=== PATIENT | male | born 1940 | race Caucasian/White ===

== ENCOUNTER 2023-07-09 10:38 | Inpatient (IN) | payer MEDICARE, SELFPAY ==
--- NOTE | ~2023-07-09 | XR_ITS ---
EXAMINATION: XR RIBS, RIGHT CLINICAL INFORMATION: Fall, right rib pain COMPARISON: None available. TECHNIQUE: 3 views of the right ribs were obtained. FINDINGS: The lungs are well-expanded without any acute consolidation or mass or nodule.. The cardiomediastinal silhouette and pulmonary vasculature are normal. There are fractures involving right lateral eighth and ninth ribs. There is no pneumothorax. There is a small right pleural effusion. XR/XR ribs RT min 3V w CXR1V IMPRESSION: Fractures involving right lateral eighth and ninth ribs with small right basilar pleural effusion and no pneumothorax.
--- NOTE | ~2023-07-09 | CT_ITS ---
EXAMINATION: CT ABDOMEN AND PELVIS WITHOUT CONTRAST CLINICAL INFORMATION: Abdominal distention. COMPARISON: None available. TECHNIQUE: Multidetector volumetric imaging was performed from the superior aspect of the liver through the pubic symphysis. Sagittal and coronal reformatted images were obtained on the technologist's workstation. This CT examination was performed using dose optimization techniques as appropriate, variously including the following: *Automated exposure control *Adjustment of mA and/or kV according to patient size (this includes techniques or standardized protocols for targeted exams where dose is matched to indication/reason for exam; i.e. extremities or head) *Use of iterative reconstruction technique DLP: 767 mGy-cm FINDINGS: LUNG BASES: There is a small right pleural effusion with associated atelectatic change at the right lung base. There is a right pneumothorax. LIVER, GALLBLADDER, AND BILIARY TREE: The liver is normal in size, shape, and attenuation. No focal hepatic lesion or biliary ductal dilatation is present. The gallbladder is unremarkable with no evidence of radiopaque gallstones, gallbladder wall thickening, or obvious pericholecystic inflammatory changes. PANCREAS: Unremarkable. SPLEEN: Unremarkable. ADRENAL GLANDS: Unremarkable. KIDNEYS AND URETERS: The kidneys are normal in size, shape, and attenuation. No hydronephrosis, hydroureter, or calculi seen. No perinephric stranding. BLADDER: Unremarkable. GASTROINTESTINAL TRACT: There are a few diverticula of the descending colon without diverticulitis. The appendix is not confidently seen as a separate structure. ABDOMINAL WALL: No significant hernia is appreciated. LYMPH NODES: Normal. VASCULAR: There is atherosclerotic plaque of the abdominal aorta and proximal branches. PELVIC VISCERA: Unremarkable. OSSEOUS STRUCTURES: There is diffuse thoracolumbar disc degenerative change. There is bilateral hip degenerative change. There are fractures of the anterolateral right 8th through 11th ribs. CT/CT abdomen pelvis wo IV con IMPRESSION: Right pleural effusion with atelectasis. Partially imaged anterior right pneumothorax. Consider plain film evaluation. 8 through 11th right rib fractures. Diverticula of the descending colon without diverticulitis. No acute intra-abdominal process. Fleischner guidelines were followed.
--- NOTE | ~2023-07-09 | CT_ITS ---
Examination: CT chest, abdomen pelvis without IV contrast. CLINICAL INDICATION: Trauma evaluate for a fracture or effusion. Correlation: Chest x-ray 07/09/2023. TECHNIQUE: 5 mm thin axial and reformatted 3 mm thin sagittal and coronal images of chest, abdomen pelvis were obtained without contrast. DLP 953. This CT examination was performed using dose optimization technique as appropriate, variously including the following: Automated exposure control Adjustment of MA and/or KV according to patient size(this includes techniques or standardized protocols for targeted exams where dose is matched to indication/reason for exam; extremities or head. Use of iterative reconstruction techniques. FINDINGS: Chest: LUNGS: The lungs are well-expanded and clear of acute process. There is no consolidation, contusion or mass. Mediastinum: Central trachea and the bronchi widely patent. The thyroid lobes are symmetric and normal. The thoracic aorta is of normal caliber. Small shotty lymph nodes are seen in the mediastinum. No mediastinal hematoma seen. There is small calcification along the right upper paramediastinum. No pericardial effusion seen. Trace coronary artery calcifications. Pleura: There is a small right pleural effusion measuring 2 Hounsfield units. No evidence of pneumothorax. The left pleural space is unremarkable. Axilla: No abnormal size axillary lymph nodes seen. The chest wall is unremarkable. Osseous structures: There is mild ventral spondylosis throughout dorsal spine. No aggressive lytic or sclerotic process seen. There are right lateral fractures involving right fifth through 11th ribs. There is a right posterior nondisplaced third, lateral fourth, fifth ribs. No obvious additional fracture seen. . ABDOMEN AND PELVIS: Liver, ducts and gallbladder: The liver is homogeneous in density, normal contour and size. No focal lesion, laceration or hematoma seen. No intrahepatic ductal dilatation. The gallbladder is unremarkable. Spleen: Unremarkable. Pancreas: Unremarkable. Adrenal glands: Unremarkable. Kidneys and ureters: Both kidneys are symmetrical in size, shape and position. No perinephric hematoma or renal contusion. No radiopaque renal calculi or hydronephrosis. Abdominal wall: Unremarkable. GI tract: There is colonic diverticulosis without mural thickening or poorly chronic fat stranding. There is not cystic mild mural thickening of the rectum. Appendix is not visualized with certainty. The small bowel loops are normal caliber. No free air or free fluid seen. Pelvis: The bladder is normally distended without any bladder wall thickening or radiopaque calculi. Osseous structures: No acute fracture or lytic process seen. There is degenerative disc changes with vacuum disc phenomena L2-L3 and L4-L5 disc levels. There is moderate ventral spondylosis lower dorsal and lumbar spine. No aggressive lytic or sclerotic process. CT/CT abdomen pelvis wo IV con IMPRESSION: Multiple right rib fractures from fifth through 11th. There is a small right pleural effusion. No lung contusion or pneumothorax seen. There is no acute intra-abdominal abnormality. Especially no solid organ laceration or hematoma. Colonic diverticulosis with nonspecific mild mural thickening of this distal sigmoid colon and rectum.
--- NOTE | ~2023-07-09 | XR_ITS ---
EXAMINATION: XR CHEST CLINICAL INFORMATION: Shortness of breath. Concern for pneumothorax. COMPARISON: 07/09/2023. TECHNIQUE: Frontal view of the chest was obtained. FINDINGS: The lung volumes are low. The cardiomediastinal silhouette is stable. There is a small right pneumothorax extending to the right lung apex. There is blunting of the right costophrenic angle. Multiple lower right rib fractures are noted. The soft tissues are unremarkable. XR/XR chest 1V IMPRESSION: Low lung volumes limits evaluation. Small right pneumothorax. Multiple lower right ribs fractures. Small right pleural effusion.
--- NOTE | ~2023-07-09 | XR_ITS ---
EXAMINATION: XR CHEST CLINICAL INFORMATION: Follow-up right pneumothorax COMPARISON: Chest 07/10/2023 TECHNIQUE: AP upright portable view of the chest was obtained. 0700 FINDINGS: There is no significant change in the small right apical pneumothorax. The cardiomediastinal silhouette is stable. Slight blunting of the right costophrenic angle, as before. Multiple lower right rib fractures. The soft tissues are unremarkable. XR/XR chest 1V IMPRESSION: No significant change in small right apical pneumothorax. Multiple lower right rib fractures Small right pleural effusion.
--- NOTE | 2023-07-09 10:57 | ED.FALL ---
HPI - Fall General Chief Complaint: Fall Stated Complaint: body pain due to fall Time Seen by Provider: 07/09/23 12:00 Source: patient Mode of arrival: ambulatory Limitations: no limitations History of Present Illness HPI Narrative: 83 yo male with history of HTN, glaucoma here with complaints of fall which occurred on Monday after trip and fall hitting back and right ribs. No hitting of the head or LOC. No AC therapy Taking ibuprofen/tylenol for pain. No abdominal pain, neck pain, headache, vision changes, vomiting. Related Data Home Medications Medication Instructions Recorded Confirmed atenolol 50 mg tablet 100 mg PO DAILY 07/09/23 07/09/23 timolol 0.5 % eye drops 2 drp ophthalmic (eye) DAILY 07/09/23 07/09/23 Allergies Allergy/AdvReac Type Severity Reaction Status Date / Time Sulfa (Sulfonamide Allergy Unknown Verified 07/09/23 10:58 Antibiotics) Review of Systems Review of Systems: Yes all other systems are reviewed and are negative Constitutional: Constitutional: Reports no additional constitutional complaints, Denies body ache(s), Denies chills, Denies fever(s), Denies headache(s) and Denies weakness Eyes: Eyes: Reports no additional eye complaints and Denies change in vision ENT: Reports system reviewed and no additional complaints, except as documented, Denies dizziness, Denies headache(s), Denies nasal congestion, Denies nasal discharge and Denies neck pain Cardiovascular: Cardiovascular: Reports no additional cardiovascular complaints, Reports chest pain, Denies leg edema and Denies dyspnea Respiratory: Respiratory: Reports no additional respiratory complaints, Denies cough and Denies dyspnea Gastrointestinal: Gastrointestinal: Reports no additional gastrointestinal complaints, Denies abdominal pain, Denies diarrhea, Denies nausea and Denies vomiting Genitourinary: Genitourinary: Denies urinary incontinence Musculoskeletal: Musculoskeletal: Reports no additional musculoskeletal complaints, Reports back pain, Denies arthralgias, Denies joint swelling, Denies neck pain, Denies numbness and Denies tingling Integumentary/Breasts: Skin/Breast: Reports system reviewed and no additional complaints, except as docu and Denies rash Neurologic: Reports system reviewed and no additional complaints, except as documented, Denies Abnormal speech present, Denies dizziness, Denies headache(s), Denies numbness, Denies tingling and Denies weakness PMFSH Past Medical History Attestation statement: The following information was validated with the patient. Source: old records reviewed and nursing notes reviewed Social History Social History Smoked in Last 30 Days: No Use of substances other than those prescribed or required for medical reasons: No Advance Directives: Yes Advance Directives Information Provided: No Advance Directives on File: No Physical Exam Vital Signs: Vital Signs: Last Vital Signs Temp 97.9 F 07/09/23 10:58 Pulse 68 07/09/23 10:58 Resp 16 07/09/23 14:49 BP 177/87 H 07/09/23 10:58 Pulse Ox 98 07/09/23 10:58 O2 Del Method Room Air 07/09/23 10:58 BMI result Body Mass Index 31.0 Const: General: cooperative, healthy appearing, comfortable and no acute distress Orientation/consciousness: patient oriented x3 Limitations: no limitations HEENT: Other: No hemo tympanum Head: Yes normal to inspection, No Gonzales's sign and No raccoon eyes Ears: hearing grossly normal bilaterally and TM's normal bilaterally General nose exam: Normal external nose present Face and sinus: Yes normal facial exam Mouth: Normal oral and palatal mucosa present Throat: Yes posterior oropharynx normal Eyes: General: appearance normal, both eyes and all related structures Pupils: Equal, round and reactive pupils present Neck: Other: No cervical midline tenderness, step-offs deformities Neck: Yes normal visual inspection, Yes full ROM, Yes no lymphadenopathy and Yes no meningeal signs Chest: Other: mild tenderness the right lateral wrist with no crepitus, ecchymosis or deformity. Chest palpation & inspection: normal inspection of the chest Resp: Effort & Inspection: normal respiratory effort Auscultation: clear to auscultation bilaterally Cardio: Rate: regular rate Rhythm: regular rhythm Peripheral pulses: Peripheral pulses 2+ throughout GI: Inspection: Yes normal to inspection and No distended Palpation (GI): Soft to palpation and nontender Auscultation: normal bowel sounds : General: Yes no CVA tenderness Back/Spine/Pelvis: Other: no tenderness over the spine, no ecchymosis or deformity noted. Back: no CVA tenderness Thoracic/Lumbar Spine: thoracic and lumbar spine normal to inspection Skin: General skin exam: no rashes or lesions noted Neuro: General: patient oriented x3, moves all extremities, no meningeal signs, no focal motor deficits and normal sensation to monofilament Cranial nerves: Yes CN's II-XII intact bilaterally, Yes Equal, round and reactive pupils present, Yes Bilaterally intact EOM present, Yes Nystagmus not present, Yes Normal facial strength present and Yes Midline tongue present Cognition (Neuro): normal cognition Speech: No Abnormal speech present Gait exam (Neuro): Normal gait present Motor exam (neuro): 5/5 motor strength present throughout Sensory Exam: Normal double simultaneous stimulation for sensation Extrem: General: Yes normal to inspection Course Course Course Narrative: This is a rapid medical exam. deferred additional HPI, ROS, PE to primary provider. 83 yo male with history of HTN, glaucoma here with complaints of fall which occurred on Monday after trip and fall hitting back and right ribs. No focal back pain on exam. +right rib tendernss on palpation. Will check x-rays. No AC therapy Taking ibuprofen/tylenol for pain VSS Reevaluation(s) Reevaluation #1: 1415- x-ray shows to rib fractures with a small right pleural effusion. Patient will have a CT chest and CT abdomen and pelvis to rule out pulmonary contusion, pneumothorax, pneumonia, upper abdominal injury. Will obtain baseline labs. Patient medicated Medications Administered Discontinued Medications Generic Name Dose Route Start Last Admin Trade Name Freq PRN Reason Stop Dose Admin Acetaminophen 975 mg 07/09/23 14:18 07/09/23 14:34 Acetaminophen 325 Mg Tablet PO 07/09/23 14:19 975 mg ONCE ONE Administration Ketorolac Tromethamine 30 mg 07/09/23 14:18 07/09/23 14:35 Ketorolac Tromethamine 30 Mg/Ml Vial IM 07/09/23 14:19 30 mg ONCE ONE Administration Lidocaine 1 patch 07/09/23 14:18 07/09/23 14:35 Lidocaine 4 % Patch Adh..Patch TRANSDERMA 07/09/23 14:19 1 patch ONCE ONE Administration Protocol Medical Decision Making Medical Decision Making [facility] Narrative: 83 yo male with history of HTN, glaucoma here with complaints of fall which occurred on Monday after trip and fall hitting back and right ribs. No hitting of the head or LOC. No AC therapy Taking ibuprofen/tylenol for pain. No abdominal pain, chest pain, neck pain, headache, vision changes, vomiting. On exam there is some mild tenderness over the right lateral ribs. No focal back pain on exam will obtain x-rays of the right ribs and chest Differential Diagnosis Differential Diagnoses: The differential diagnosis associated with the presentation includes fracture, contusion low concern for acute abdomen/thoracic injury Admission/Observation Consideration of admission/observation: Escalation of care including admission/observation considered Multiple non displaced rib fractures with remote trauma w/ no intrathoracic or intra-abdominal injury. Patient not requiring supplemental oxygen. No evidence of flail chest. I d/w this with my attending physician and we do not feel that patient requires transfer to trauma care center. However, patient will need better pain control and currently is >65 yrs ol, lives alone, drove here and has not way home if we provide narcotic pain control here. No relief with non-narcotic measures in the ED. I believe he would benefit from better pain control and a pulmonary toilet inpatient. Consult Healthcare Provider Management of the patient was discussed with: Hospitalist and Nurse Informatics Educator I spoke to the hospitalist (Dr Herron) who accepted admission but would like Thoracics input I spoke to thoracics (Dr. Mcmillan) who will consult on the patient if needed, recommend pain control, anesthesia consultation for epidural for pain control if necessary, no surgical intervention required Lab Data MDM Lab Attestation statement: I reviewed the patient's lab results. mild leukocytosis-otherwise unremarkable 07/09/23 14:56 07/09/23 14:56 Labs: Lab Results 07/09/23 Range/Units 14:56 WBC 12.0 H (4.8-10.8) X10*3/uL RBC 4.45 L (4.60-5.80) X10*6/uL Hgb 13.2 L (14.0-18.0) g/dl Hct 40.4 L (42.0-52.0) % MCV 90.8 (80.0-98.0) fL MCH 29.7 (27.0-33.0) pg MCHC 32.7 (31.0-36.0) g/dl RDW 13.0 (11.0-16.0) % Plt Count 265 (160-400) X10*3/uL MPV 8.9 L (9.4-12.4) fL Immature Gran % (Auto) 0.3 (0.0-0.4) % Neut % (Auto) 75.7 H (45-73) % Lymph % (Auto) 13.2 L (20-40) % [place] % (Auto) 7.6 (2-11) % Eos % (Auto) 2.7 (0-4) % Baso % (Auto) 0.5 (0-2) % Lymph # (Auto) 1.6 (1.2-4.9) X10*3/uL [place] # (Auto) 0.9 (0.1-1.2) X10*3/uL Eos # (Auto) 0.3 (0.0-0.4) X10*3/uL Baso # (Auto) 0.1 (0.0-0.2) X10*3/uL Abs Immat Gran (auto) 0.04 H (0.00-0.03) X10*3/uL Absolute Neuts (auto) 9.1 H (2.0-8.3) x10*3/uL Absolute Nucleated RBC 0.000 (0.0-0.012) X10*3/uL Nucleated RBC % (auto) 0.0 (0.0-0.2) /100WBC Sodium 137 (135-145) mmol/L Potassium 5.1 (3.3-5.1) mmol/L Chloride 105 (96-108) mmol/L Carbon Dioxide 22 (22-29) mmol/L Anion Gap 15 (12-20) BUN 12 (9-16) mg/dL Creatinine 0.88 (0.5-1.4) mg/dL Estim Creat Clear Calc 74.9 Estimated GFR > 60 Random Glucose 113 (60-115) mg/dL Calcium 9.8 (8.4-10.2) mg/dL Total Bilirubin 0.7 (0.0-1.0) mg/dL Direct Bilirubin 0.3 (0.0-0.5) mg/dL AST 20 (5-37) U/L ALT 34 (0-40) U/L Alkaline Phosphatase 74 (39-117) U/L Total Protein 8.1 H (6.5-8.0) g/dL Albumin 4.0 (3.5-5.0) g/dL Independent Interpretation I performed an independent interpretation of an: Plain X-Ray and CT Scan Interpretation: I independently reviewed the x-ray, CT chest/abdomen/pelvis and agree with the rad report Radiology Impression Discussion of test interpretation with radiology: I have reviewed the radiologist's reading. Radiologist Impression: [id number] [place] [address] XRay Report Signed Patient: Sylvester Finley MR#: [id number] : 1940 Acct:[id number] Age/Sex: 83 / M ADM Date: 07/09/23 Loc: .ED Attending Dr: Ordering Physician: Nancy Delgado NP Date of Service: 07/09/23 Procedure(s): XR ribs RT min 3V w CXR1V Accession Number(s): [id number] cc: ELDON HE MD; Nancy Delgado NP~ EXAMINATION: XR RIBS, RIGHT CLINICAL INFORMATION: Fall, right rib pain COMPARISON: None available. TECHNIQUE: 3 views of the right ribs were obtained. FINDINGS: The lungs are well-expanded without any acute consolidation or mass or nodule.. The cardiomediastinal silhouette and pulmonary vasculature are normal. There are fractures involving right lateral eighth and ninth ribs. There is no pneumothorax. There is a small right pleural effusion. XR/XR ribs RT min 3V w CXR1V IMPRESSION: Fractures involving right lateral eighth and ninth ribs with small right basilar pleural effusion and no pneumothorax. FINDINGS: Chest: LUNGS: The lungs are well-expanded and clear of acute process. There is no consolidation, contusion or mass. Mediastinum: Central trachea and the bronchi widely patent. The thyroid lobes are symmetric and normal. The thoracic aorta is of normal caliber. Small shotty lymph nodes are seen in the mediastinum. No mediastinal hematoma seen. There is small calcification along the right upper paramediastinum. No pericardial effusion seen. Trace coronary artery calcifications. Pleura: There is a small right pleural effusion measuring 2 Hounsfield units. No evidence of pneumothorax. The left pleural space is unremarkable. Axilla: No abnormal size axillary lymph nodes seen. The chest wall is unremarkable. Osseous structures: There is mild ventral spondylosis throughout dorsal spine. No aggressive lytic or sclerotic process seen. There are right lateral fractures involving right fifth through 11th ribs. There is a right posterior nondisplaced third, lateral fourth, fifth ribs. No obvious additional fracture seen. . ABDOMEN AND PELVIS: Liver, ducts and gallbladder: The liver is homogeneous in density, normal contour and size. No focal lesion, laceration or hematoma seen. No intrahepatic ductal dilatation. The gallbladder is unremarkable. Spleen: Unremarkable. Pancreas: Unremarkable. Adrenal glands: Unremarkable. Kidneys and ureters: Both kidneys are symmetrical in size, shape and position. No perinephric hematoma or renal contusion. No radiopaque renal calculi or hydronephrosis. Abdominal wall: Unremarkable. GI tract: There is colonic diverticulosis without mural thickening or poorly chronic fat stranding. There is not cystic mild mural thickening of the rectum. Appendix is not visualized with certainty. The small bowel loops are normal caliber. No free air or free fluid seen. Pelvis: The bladder is normally distended without any bladder wall thickening or radiopaque calculi. Osseous structures: No acute fracture or lytic process seen. There is degenerative disc changes with vacuum disc phenomena L2-L3 and L4-L5 disc levels. There is moderate ventral spondylosis lower dorsal and lumbar spine. No aggressive lytic or sclerotic process. CT/CT abdomen pelvis wo IV con IMPRESSION: Multiple right rib fractures from fifth through 11th. There is a small right pleural effusion. No lung contusion or pneumothorax seen. There is no acute intra-abdominal abnormality. Especially no solid organ laceration or hematoma. Colonic diverticulosis with nonspecific mild mural thickening of this distal sigmoid colon and rectum. Tests considered The following testing was considered but not selected: No head strike or LOC with normal neuro to suggest need for CT head Prescription Management I considered prescription management with: Pain Medication Chronic Conditions Patient?s care impacted by: Hypertension Critical Care Time Critical Care Time Critical Care Time: Yes Total Critical Care Time: 60 Attestation: reassessment of patient's pain, vital signs, discussion with thoracics and medicine for admission Discharge Plan Discharge Clinical Impression: Fracture of rib Patient Disposition: Admitted As Inpatient
[2023-07-09 10:58] VITALS: BP 177/87; PULSE 68; RESP 18; TEMP 36.6; O2SAT 98; BMI 31.0
[2023-07-09] MEDS: Acetaminophen 325 MG TABLET 975 MG PO (14:34)
[2023-07-09] MEDS: Ketorolac Tromethamine 30 MG/ML VIAL IM (14:35)
[2023-07-09] MEDS: Lidocaine 4 % Patch ADH..PATCH 1 PATCH TRANSDERMA (14:35)
[2023-07-09 14:49] VITALS: RESP 16
[2023-07-09 15:08] LABS: MANUAL DIFF FLAG NO
[2023-07-09 15:10] LABS: Basophils Absolute Auto 0.1 X10*3/uL (0.0-0.2); Basophils Percent Auto 0.5 % (0-2); Eosinophils Absolute Auto 0.3 X10*3/uL (0.0-0.4); Eosinophils Percent Auto 2.7 % (0-4); Hematocrit 40.4 % (42.0-52.0); Hemoglobin 13.2 g/dl (14.0-18.0); Imm Gran Abs Auto 0.04 X10*3/uL (0.00-0.03); Imm Gran Pct Auto 0.3 % (0.0-0.4); Lymphocytes Absolute Auto 1.6 X10*3/uL (1.2-4.9); Lymphocytes Percent Auto 13.2 % (20-40); Mean Corpuscular HGB Conc 32.7 g/dl (31.0-36.0); Mean Corpuscular Hemoglobin 29.7 pg (27.0-33.0); Mean Corpuscular Volume 90.8 fL (80.0-98.0); Mean Platelet Volume 8.9 fL (9.4-12.4); Monocytes Absolute Auto 0.9 X10*3/uL (0.1-1.2); Monocytes Percent Auto 7.6 % (2-11); Neutrophils Absolute Auto 9.1 x10*3/uL (2.0-8.3); Neutrophils Percent Auto 75.7 % (45-73); Platelet Count 265 X10*3/uL (160-400); Red Blood Count 4.45 X10*6/uL (4.60-5.80)
[2023-07-09 15:23] LABS: Alanine Aminotransferase 34 U/L (0-40); Alkaline Phosphatase 74 U/L (39-117); Anion Gap 15 (12-20); Aspartate Amino Transferase 20 U/L (5-37); Bilirubin Direct 0.3 mg/dL (0.0-0.5); Bilirubin Total 0.7 mg/dL (0.0-1.0); Blood Urea Nitrogen 12 mg/dL (9-16); Calcium 9.8 mg/dL (8.4-10.2); Carbon Dioxide 22 mmol/L (22-29); Chloride 105 mmol/L (96-108); Creatinine Clr Calc Pharmacy 74.9; Estimated Glomerular Filt Rate > 60; Glucose Random 113 mg/dL (60-115); Potassium 5.1 mmol/L (3.3-5.1); Sodium 137 mmol/L (135-145); Total Protein 8.1 g/dL (6.5-8.0)
--- NOTE | 2023-07-09 17:49 | PHA.MEDREC ---
Pharmacy Consult ? Medication Reconciliation Spoke with patient and confirmed medications. Pharmacy has completed the medication reconciliation.
--- NOTE | 2023-07-09 17:56 | PM.IMHP ---
History of Present Illness Date of Service: 07/09/23 <LAURA Musa - Last Filed: 07/09/23 18:05> Attending physician on admission: Kristen Herron <LAURA Musa - Last Filed: 07/09/23 18:05> Chief Complaint: rib pain <LAURA Musa - Last Filed: 07/09/23 18:05> 83-year-old male with history of glaucoma and hypertension presented to the ED earlier today for evaluation of right-sided rib pain. The patient reports he sustained a mechanical fall about 5 days ago. He was caring a crock pot down the stairs when he lost production floater and tried to catch this falling down on several stairs landing on the right side and back. He denies any head strike or loss of consciousness. Since then he has had uncontrolled pain worse with deep inspiration in the upper right back and right chest. In the ED, vital stable though patient hypertensive to 177/87. There is a slight leukocytosis of 12.0, stable normocytic anemia. Renal function electrolyte levels are normal. Hepatic function normal. X-ray of the right ribs shows fractures involving the right lateral 8th and 9th ribs with small right basilar pleural effusion. CT abdomen/pelvis negative for any acute intra-abdominal abnormality including fracture. CT chest shows multiple right rib fractures from 5th through 11th ribs with small right pleural effusion but no lung contusion or pneumothorax. In the ED, has received ketorolac, lidocaine patch, Tylenol without improvement. Patient has no ride home if administered narcotic medication and has no other ride home. Given intractable pain, patient will be observed overnight for pain management. Ordered for 4 mg IV morphine in the ED. <LAURA Musa - Last Filed: 07/09/23 18:05> Review of Systems Review of Systems: General: No fevers, malaise, unintentional weight loss HEENT: No blurred vision, diplopia. No sore throat, nasal congestion, rhinorrhea, sinus pain, ear pain Cardiovascular: No chest pain, palpitations, or leg edema Respiratory: No shortness of breath, wheezing, cough GI: No abdominal pain, nausea, vomiting, diarrhea, constipation, melena, hematochezia : No dysuria, hematuria, increased urinary frequency, decreased urinary output MSK: No myalgia, back pain. +right rib pain, +pleuritic cp Neuro: No headaches, weakness, paresthesias Skin: No rashes or lesions <LAURA Musa - Last Filed: 07/09/23 18:05> [facility] Medical History: Medical History Glaucoma HTN (hypertension) <LAURA Musa - Last Filed: 07/09/23 18:05> Social History: Social History Household Members: None Housing: House Do you presently have visiting nurse or other home services: No Patient Tobacco Use Status: Never used Tobacco Smoked in Last 30 Days: No Use of substances other than those prescribed or required for medical reasons: No Have you been hit, kicked, punched, or otherwise hurt by someone within the past year? If so, by whom?: No Do you feel safe in your current relationship?: No Current Relationship Is there a partner from a previous relationship who is making you feel unsafe now?: No Are you made to feel afraid or neglected: No Advance Directives: No Advance Directives Information Provided: No Advance Directives on File: No Do you have thoughts of harming others: None Do you have a plan to hurt others: No Plan Recently lost weight without trying: No How much weight loss: Not applicable Eating poorly because of decreased appetite: No Nutrition screen score: 0 Nutrition Risks: No Nutritional Risk Poor oral hygiene: No service: No <LAURA Musa - Last Filed: 07/09/23 18:05> Meds Allergies/Adverse reactions: Allergies Allergy/AdvReac Type Severity Reaction Status Date / Time Sulfa (Sulfonamide Allergy Unknown Verified 07/09/23 10:58 Antibiotics) <LAURA Musa - Last Filed: 07/09/23 18:05> Active Medications: Current Medications Acetaminophen (Acetaminophen 325 Mg Tablet) 650 mg PO Q6H PRN PRN Reason: Pain, Mild (Pain Scale 1-3) Atenolol (Atenolol 100 Mg Tablet) 100 mg PO DAILY [facility]; Protocol Docusate Sodium (Docusate Sodium 100 Mg Capsule) 100 mg PO DAILY PRN PRN Reason: Constipation Enoxaparin Sodium (Enoxaparin Sodium 40 Mg/0.4 Ml Syringe) 40 mg SUBCUT Q24H [facility] Lidocaine (Lidocaine 4 % Patch Adh..Patch) 2 patch TRANSDERMA DAILY [facility]; Protocol Ondansetron HCl (Ondansetron Hcl 4 Mg/2 Ml Vial) 4 mg IVPUSH Q8H PRN PRN Reason: Nausea and Vomiting Oxycodone HCl (Oxycodone Hcl Immed Release 5 Mg Tablet) 5 mg PO Q6H PRN PRN Reason: Pain, Severe (Pain Scale 7-10) Sodium Chloride (0.9 % Sodium Chloride Flush 3 Ml Syringe) 3 ml IVFLUSH QSHIFT [facility] Timolol Maleate (Timolol Maleate 0.5 % Oph Franca 5 Ml Drbtl) 2 drop EYE-BOTH DAILY [facility] <LAURA Musa - Last Filed: 07/09/23 18:05> Home medications: Home Medications Medication Instructions Recorded Confirmed Last Taken Type atenolol 50 mg tablet 100 mg PO DAILY 07/09/23 07/09/23 07/08/23 History timolol 0.5 % eye drops 2 drp ophthalmic (eye) DAILY 07/09/23 07/09/23 Unknown History <LAURA Musa - Last Filed: 07/09/23 18:05> Physical Exam Vital Signs and Narrative: Vital Signs: Last Vital Signs Temp 97.9 F 07/09/23 10:58 Pulse 68 07/09/23 10:58 Resp 16 07/09/23 14:49 BP 177/87 H 07/09/23 10:58 Pulse Ox 98 07/09/23 10:58 O2 Del Method Room Air 07/09/23 10:58 BMI result Body Mass Index 31.0 <LAURA Musa - Last Filed: 07/09/23 18:05> Constitutional - Awake and Alert, No apparent distress Eyes - PERRLA, EOMI Cardiovascular - S1S2, RRR, No edema Respiratory - Normal lung expansion, Normal respiratory effort, No respiratory distress, CTA bilaterally Extremities - no calf tenderness bilaterally, no swelling Musculoskeletal - Normal inspection, normal ROM. Diffuse ttp over posterior right ribs and right anterior chest Skin - Warm/Dry Neurological - Alert & oriented x3 Psychological - Appropriate affect <LAURA Musa - Last Filed: 07/09/23 18:05> Results Labs CBC and Chem 7: 07/10/23 05:05 07/10/23 05:05 <LAURA Musa - Last Filed: 07/09/23 18:05> Labs: Laboratory Results - last 24 hr 07/09/23 14:56 MCV 90.8 MCH 29.7 MCHC 32.7 RDW 13.0 Plt Count 265 MPV 8.9 L Immature Gran % (Auto) 0.3 Neut % (Auto) 75.7 H Lymph % (Auto) 13.2 L [place] % (Auto) 7.6 Eos % (Auto) 2.7 Baso % (Auto) 0.5 Lymph # (Auto) 1.6 [place] # (Auto) 0.9 Eos # (Auto) 0.3 Baso # (Auto) 0.1 Abs Immat Gran (auto) 0.04 H Absolute Neuts (auto) 9.1 H Absolute Nucleated RBC 0.000 Nucleated RBC % (auto) 0.0 Anion Gap 15 Estim Creat Clear Calc 74.9 Estimated GFR > 60 Random Glucose 113 Calcium 9.8 Total Bilirubin 0.7 Direct Bilirubin 0.3 AST 20 ALT 34 Alkaline Phosphatase 74 Total Protein 8.1 H Albumin 4.0 <LAURA Musa - Last Filed: 07/09/23 18:05> Imaging Radiologist's Impressions: Impressions Ribs X-Ray 07/09/23 12:38 IMPRESSION: Fractures involving right lateral eighth and ninth ribs with small right basilar pleural effusion and no pneumothorax. Abdomen/Pelvis CT 07/09/23 16:03 IMPRESSION: Multiple right rib fractures from fifth through 11th. There is a small right pleural effusion. No lung contusion or pneumothorax seen. There is no acute intra-abdominal abnormality. Especially no solid organ laceration or hematoma. Colonic diverticulosis with nonspecific mild mural thickening of this distal sigmoid colon and rectum. Chest CT 07/09/23 16:07 IMPRESSION: Multiple right rib fractures from fifth through 11th. There is a small right pleural effusion. No lung contusion or pneumothorax seen. There is no acute intra-abdominal abnormality. Especially no solid organ laceration or hematoma. Colonic diverticulosis with nonspecific mild mural thickening of this distal sigmoid colon and rectum. <LAURA Musa - Last Filed: 07/09/23 18:05> Assessment and Plan (1) Multiple fractures of ribs of right side: Status: Acute <LAURA Musa - Last Filed: 07/09/23 18:05> 83-year-old male with history of glaucoma and hypertension to be observed for intractable pain 2/2 right rib fractures #Multiple nondisplaced right rib fractures -s/p mechanical fall -pain management with oxycodone, Tylenol, lidocaine patch -incentive spirometry -anesthesiology consult for possible epidural or nerve block # hypertension -continue atenolol -monitor blood pressures # glaucoma -continue timolol DVT prophylaxis-Lovenox Do not intubate but attempt resuscitation <LAURA Musa - Last Filed: 07/09/23 18:05> 83-year-old male with history of glaucoma and hypertension to be observed for intractable pain 2/2 right rib fractures #Multiple nondisplaced right rib fractures -s/p mechanical fall -pain management with oxycodone, Tylenol, lidocaine patch -incentive spirometry -anesthesiology consult for possible epidural or nerve block # hypertension -continue atenolol -monitor blood pressures # glaucoma -continue timolol DVT prophylaxis-Lovenox Do not intubate but attempt resuscitation Addendum to history and physical by the advanced practice provider, LAURA Chamberlain I interviewed and examined the patient. I discussed their presentation and management with the NAKUL. I reviewed the history and physical and agree with the documentation, with the following additions and corrections: 83yo M presenting after mechanical fall 5d prior, no LOC or presycnope. Presenting with pleuritc R chest pain. Found to have multiple rib fx's with small pleural effusion. non-displaced, no contusion, no PTX. admitting for pain control + pulmonary toilet. per conversation with Thoracic, no role for surgical fixation. consider Anesthesia consult for epidural? nerve block? <Kristen Herron MD - Last Filed: 07/10/23 14:31> Time Spent With Patient Time: Total time managing care of this patient today ____ minutes. <LAURA Musa - Last Filed: 07/09/23 18:05> Quality Stroke Does the patient have a stroke diagnosis?: No <LAURA Musa - Last Filed: 07/09/23 18:05> VTE Prior VTE?: No <LAURA Musa - Last Filed: 07/09/23 18:05> VTE Risk Level:: Medical - moderate - high <LAURA Musa - Last Filed: 07/09/23 18:05> VTE Device Contraindication: Treatment Not Indicated <LAURA Musa - Last Filed: 07/09/23 18:05> VTE Drug Contraindication: N/A - Med Ordered <LAURA Musa - Last Filed: 07/09/23 18:05>
[2023-07-09] MEDS: ondansetron HCL 4 MG/2 ML VIAL IVPUSH (18:23)
[2023-07-09] MEDS: Morphine Sulfate 4 MG/ML CARTRIDGE IVPUSH (18:23)
[2023-07-09] MEDS: Enoxaparin Sodium 40 MG/0.4 ML SYRINGE SUBCUT (18:24)
[2023-07-09] MEDS: oxyCODONE HCl Immed Release 5 MG TABLET PO (21:19)
--- NOTE | 2023-07-09 23:23 | PC.NURSE ---
this rn assumed care of pt @ 2300. pt moved to overflow from [facility] [place]
[2023-07-09 23:44] VITALS: BP 135/74; PULSE 63; RESP 18; TEMP 36.4; O2SAT 93
[2023-07-10] VITALS (10 sets, daily range): BP systolic 106–172; BP diastolic 57–80; PULSE 65–74; RESP 15–20; TEMP 36–37.4; O2SAT 94–97; BMI 31.0
[2023-07-10] MEDS: Acetaminophen 325 MG TABLET 650 MG PO ×3 (00:43→14:41)
[2023-07-10] MEDS: 0.9 % Sodium Chloride Flush 3 ML SYRINGE IVFLUSH ×4 (02:00→23:08)
--- NOTE | 2023-07-10 02:06 | PC.NURSE ---
pt ambulatory 1 assist to restroom with glass lined tank repairer. pt calm and cooperative. repositioned back to bed. lights dimmed door closed per request of pt
[2023-07-10] MEDS: oxyCODONE HCl Immed Release 5 MG TABLET PO ×2 (03:24→09:02)
[2023-07-10 05:14] LABS: MANUAL DIFF FLAG NO
[2023-07-10 05:18] LABS: Basophils Absolute Auto 0.1 X10*3/uL (0.0-0.2); Basophils Percent Auto 0.4 % (0-2); Eosinophils Absolute Auto 0.2 X10*3/uL (0.0-0.4); Eosinophils Percent Auto 1.8 % (0-4); Hematocrit 37.2 % (42.0-52.0); Hemoglobin 12.4 g/dl (14.0-18.0); Imm Gran Abs Auto 0.04 X10*3/uL (0.00-0.03); Imm Gran Pct Auto 0.3 % (0.0-0.4); Lymphocytes Absolute Auto 1.1 X10*3/uL (1.2-4.9); Lymphocytes Percent Auto 8.4 % (20-40); Mean Corpuscular HGB Conc 33.3 g/dl (31.0-36.0); Mean Corpuscular Hemoglobin 30.2 pg (27.0-33.0); Mean Corpuscular Volume 90.7 fL (80.0-98.0); Mean Platelet Volume 8.8 fL (9.4-12.4); Monocytes Absolute Auto 1.1 X10*3/uL (0.1-1.2); Monocytes Percent Auto 8.6 % (2-11); Neutrophils Absolute Auto 10.7 x10*3/uL (2.0-8.3); Neutrophils Percent Auto 80.5 % (45-73); Platelet Count 213 X10*3/uL (160-400); White Blood Count 13.3 X10*3/uL (4.8-10.8)
[2023-07-10 05:29] LABS: Anion Gap 15 (12-20); Blood Urea Nitrogen 14 mg/dL (9-16); Calcium 9.1 mg/dL (8.4-10.2); Carbon Dioxide 22 mmol/L (22-29); Chloride 103 mmol/L (96-108); Creatinine Clr Calc Pharmacy 77.6; Estimated Glomerular Filt Rate > 60; Glucose Random 123 mg/dL (60-115); Potassium 4.2 mmol/L (3.3-5.1); Sodium 136 mmol/L (135-145)
[2023-07-10] MEDS: Lidocaine 4 % Patch ADH..PATCH 2 PATCH TRANSDERMA (08:46)
[2023-07-10] MEDS: atenoloL 100 MG TABLET PO (10:33)
[2023-07-10] MEDS: timoloL maleate 0.5 % Oph Sol 5 ML DRBTL 2 DROP EYE-BOTH (10:34)
[2023-07-10] MEDS: Morphine Sulfate 4 MG/ML CARTRIDGE IVPUSH ×3 (10:35→16:52)
--- NOTE | 2023-07-10 13:03 | MHC.CM.PN ---
María 07/10/23, Pt lives in own home, independent, no services or med equipment (he has med equipment in the home from his late ). He has no preference to VNA services if recommended. CM asked if he wanted a referral to [facility] for home health aid or meals on wheels, he declined saying it is not needed. His car is in parking lot here, but he may need to call his daughter who lives in [place] for a ride home if he is taking pain medication at DC. CM to follow and assist with DC plan.
[2023-07-10] MEDS: oxyCODONE HCl Immed Release 5 MG TABLET 10 MG PO (14:41)
--- NOTE | 2023-07-10 15:07 | P.PNIM_ITS ---
Subjective Subjective Date of Service: 07/10/23 Interval History: Pain control poor. P.o. meds not controlling pain. Sats stable but unable to cough for deep breathe at this time Review of Systems Admits to chest pain over rib fractures Denies shortness of breath Denies nausea vomiting diarrhea Denies fever chills Physical Exam 2 Vital Signs: Vital Signs: Last Vital Signs Temp 97.3 F 07/10/23 11:13 Pulse 68 07/10/23 11:13 Resp 19 07/10/23 13:44 BP 118/62 07/10/23 11:13 Pulse Ox 97 07/10/23 11:13 O2 Del Method Room Air 07/10/23 11:13 BMI result Body Mass Index 31.0 Const: Other: Uncomfortable appearing in bed; able speak in full sentences Chest: Other: Right lateral chest wall tenderness over fractures Resp: Other: Diminished but clear throughout. No rales rhonchi or wheezes Cardio: Other: No S4; positive S1-S2; no S3 murmurs rubs or gallops GI: Other: Soft nontender nondistended normoactive bowel sounds Neuro: Other: Cranial nerves 2-12 grossly intact as tested. Motor is 5/5 all extremities. Sensation is intact Extrem: Other: No edema bilaterally Objective Data Active Medications Acetaminophen (Acetaminophen 325 Mg Tablet) 650 mg PO Q6H PRN PRN Reason: Pain, Mild (Pain Scale 1-3) Last Admin: 07/10/23 14:41 Dose: 650 mg Documented By: GREGORIO Atenolol (Atenolol 100 Mg Tablet) 100 mg PO DAILY [facility]; Protocol Last Admin: 07/10/23 10:33 Dose: 100 mg Documented By: GREGORY Docusate Sodium (Docusate Sodium 100 Mg Capsule) 100 mg PO DAILY PRN PRN Reason: Constipation Enoxaparin Sodium (Enoxaparin Sodium 40 Mg/0.4 Ml Syringe) 40 mg SUBCUT Q24H [facility] Last Admin: 07/09/23 18:24 Dose: 40 mg Documented By: CINDY Lidocaine (Lidocaine 4 % Patch Adh..Patch) 2 patch TRANSDERMA DAILY [facility]; Protocol Last Admin: 07/10/23 08:46 Dose: 2 patch Documented By: GREGORY Morphine Sulfate (Morphine Sulfate 4 Mg/Ml Cartridge) 4 mg IVPUSH Q4H PRN; Protocol PRN Reason: Pain, Severe (Pain Scale 7-10) Last Admin: 07/10/23 10:35 Dose: 4 mg Documented By: GREGORY Ondansetron HCl (Ondansetron Hcl 4 Mg/2 Ml Vial) 4 mg IVPUSH Q8H PRN PRN Reason: Nausea and Vomiting Oxycodone HCl (Oxycodone Hcl Immed Release 5 Mg Tablet) 10 mg PO Q4H PRN PRN Reason: Pain, Moderate(Pain Scale 4-6) Last Admin: 07/10/23 14:41 Dose: 10 mg Documented By: GREGORIO Sodium Chloride (0.9 % Sodium Chloride Flush 3 Ml Syringe) 3 ml IVFLUSH QSHIFT [facility] Last Admin: 07/10/23 14:42 Dose: 3 ml Documented By: GREGORIO Timolol Maleate (Timolol Maleate 0.5 % Oph Franca 5 Ml Drbtl) 2 drop EYE-BOTH DAILY [facility] Last Admin: 07/10/23 10:34 Dose: 2 drop Documented By: GREGORY Labs 07/10/23 05:05 07/10/23 05:05 Labs: Laboratory Results - last 24 hr 07/09/23 07/10/23 14:56 05:05 MCV 90.8 90.7 MCH 29.7 30.2 MCHC 32.7 33.3 RDW 13.0 13.0 Plt Count 265 213 MPV 8.9 L 8.8 L Immature Gran % (Auto) 0.3 0.3 Neut % (Auto) 75.7 H 80.5 H Lymph % (Auto) 13.2 L 8.4 L [place] % (Auto) 7.6 8.6 Eos % (Auto) 2.7 1.8 Baso % (Auto) 0.5 0.4 Lymph # (Auto) 1.6 1.1 L [place] # (Auto) 0.9 1.1 Eos # (Auto) 0.3 0.2 Baso # (Auto) 0.1 0.1 Abs Immat Gran (auto) 0.04 H 0.04 H Absolute Neuts (auto) 9.1 H 10.7 H Absolute Nucleated RBC 0.000 0.000 Nucleated RBC % (auto) 0.0 0.0 Anion Gap 15 15 Estim Creat Clear Calc 74.9 77.6 Estimated GFR > 60 > 60 Random Glucose 113 123 H Calcium 9.8 9.1 D Total Bilirubin 0.7 Direct Bilirubin 0.3 AST 20 ALT 34 Alkaline Phosphatase 74 Total Protein 8.1 H Albumin 4.0 Assessment and Plan (1) Multiple fractures of ribs of right side: Status: Acute (2) HTN (hypertension): Status: Acute Plan 83yo M presenting after mechanical fall 5d prior, no LOC or presycnope. Presenting with pleuritc R chest pain. Found to have multiple rib fx's with small pleural effusion. non-displaced, no contusion, no PTX. admitting for pain control + pulmonary toilet. per conversation with Thoracic, no role for surgical fixation. 1.Multiple nondisplaced right rib fractures -will increase oxycodone to 10 q.4 hours; will add morphine 4 mg IV q.4 hours in hopes to get ahead of pain -incentive spirometry -anesthesiology consult for possible epidural or nerve block 2.Hypertension -acceptable control on current therapies -adjust as indicated Lovenox Do not intubate Will require ongoing hospitalization for IV analgesics pending assessment for nerve block Time Spent With Patient Time: Total time managing care of this patient today ____ minutes. Quality Stroke Does the patient have a stroke diagnosis?: No VTE Prior VTE?: No VTE Risk Level:: Medical - moderate - high VTE Device Contraindication: Treatment Not Indicated VTE Drug Contraindication: N/A - Med Ordered
[2023-07-10] MEDS: Enoxaparin Sodium 40 MG/0.4 ML SYRINGE SUBCUT (16:52)
--- NOTE | 2023-07-10 16:52 | PM.EVENT ---
Event Note Date of Service: 07/10/23 Event Note: Called to see patient for increased pain and change in quality and pain. On exam patient markedly distended and tympanitic. Given such will order CT scan abdomen and pelvis. Further plans based on forthcoming data Time Spent With Patient Time: Total time managing care of this patient today ____ minutes.
--- NOTE | 2023-07-10 21:55 | PM.EVENT ---
Event Note Date of Service: 07/10/23 Event Note: Patient got a abdominal CT scan earlier in the day for abdominal pain which showed a small right sided pneumothorax, confirmed by plain X-ray. He is on room air currently. Discussed with Dr Mcmillan, conservative management for now. Will repeat xray in am Time Spent With Patient Time: Total time managing care of this patient today ____ minutes.
[2023-07-11 03:18] VITALS: BP 122/65; PULSE 73; RESP 18; TEMP 36.3; O2SAT 99
[2023-07-11] MEDS: Docusate Sodium 100 MG CAPSULE PO (03:36)
[2023-07-11 05:25] LABS: MANUAL DIFF FLAG NO
[2023-07-11 05:30] LABS: Basophils Percent Auto 0.3 % (0-2); Eosinophils Absolute Auto 0.2 X10*3/uL (0.0-0.4); Eosinophils Percent Auto 1.6 % (0-4); Hematocrit 37.9 % (42.0-52.0); Hemoglobin 12.3 g/dl (14.0-18.0); Imm Gran Abs Auto 0.04 X10*3/uL (0.00-0.03); Imm Gran Pct Auto 0.3 % (0.0-0.4); Lymphocytes Absolute Auto 0.9 X10*3/uL (1.2-4.9); Lymphocytes Percent Auto 7.8 % (20-40); Mean Corpuscular HGB Conc 32.5 g/dl (31.0-36.0); Mean Corpuscular Hemoglobin 29.4 pg (27.0-33.0); Mean Corpuscular Volume 90.7 fL (80.0-98.0); Mean Platelet Volume 8.8 fL (9.4-12.4); Monocytes Absolute Auto 1.4 X10*3/uL (0.1-1.2); Monocytes Percent Auto 11.9 % (2-11); Neutrophils Percent Auto 78.1 % (45-73); Platelet Count 227 X10*3/uL (160-400); Red Blood Count 4.18 X10*6/uL (4.60-5.80); Red Cell Distribution Width 13.2 % (11.0-16.0); White Blood Count 11.5 X10*3/uL (4.8-10.8)
[2023-07-11 05:35] LABS: INTERNATIONAL NORM RATIO 1.2 (0.9-1.1)
[2023-07-11 05:46] LABS: Alanine Aminotransferase 20 U/L (0-40); Albumin Level 3.5 g/dL (3.5-5.0); Alkaline Phosphatase 69 U/L (39-117); Anion Gap 14 (12-20); Aspartate Amino Transferase 15 U/L (5-37); Bilirubin Total 1.1 mg/dL (0.0-1.0); Blood Urea Nitrogen 13 mg/dL (9-16); Calcium 9.1 mg/dL (8.4-10.2); Carbon Dioxide 26 mmol/L (22-29); Chloride 99 mmol/L (96-108); Creatinine Clr Calc Pharmacy 67.3; Estimated Glomerular Filt Rate > 60; Glucose Fasting 156 mg/dL (60-99); Potassium 4.5 mmol/L (3.3-5.1); Sodium 134 mmol/L (135-145); Total Protein 7.1 g/dL (6.5-8.0)
[2023-07-11 07:16] VITALS: BP 130/66; PULSE 74; RESP 18; TEMP 36.4; O2SAT 96
[2023-07-11] MEDS: Morphine Sulfate 4 MG/ML CARTRIDGE IVPUSH (08:30)
[2023-07-11] MEDS: atenoloL 100 MG TABLET PO (08:30)
[2023-07-11] MEDS: 0.9 % Sodium Chloride Flush 3 ML SYRINGE IVFLUSH ×3 (08:31→23:05)
[2023-07-11] MEDS: oxyCODONE HCl Immed Release 5 MG TABLET 10 MG PO ×2 (11:19→20:23)
[2023-07-11] MEDS: timoloL maleate 0.5 % Oph Sol 5 ML DRBTL 2 DROP EYE-BOTH (11:19)
--- NOTE | 2023-07-11 11:28 | HO.THORCON_ITS ---
History of Present Illness Consult details Consult date: 07/11/23 Narrative: Patient is an 83-year-old male sustained a fall approximately 7 days ago onto his right side. He presented initially with severe right-sided chest pain. Workup included x-rays and CT scan demonstrating 7 right rib fractures. Patient also had a very small right pneumothorax. Chart was reviewed patient evaluated [facility] Past Medical History Medical History (Updated 07/11/23 @ 11:32 by Kevon Mcmillan MD) Glaucoma HTN (hypertension) Social History Social History Household Members: None Housing: House Do you presently have visiting nurse or other home services: No Patient Tobacco Use Status: Never used Tobacco Smoked in Last 30 Days: No Use of substances other than those prescribed or required for medical reasons: No Currently Displaying Signs/Symptoms of Drug Intoxication Withdrawal: No Have you been hit, kicked, punched, or otherwise hurt by someone within the past year? If so, by whom?: No Do you feel safe in your current relationship?: No Current Relationship Is there a partner from a previous relationship who is making you feel unsafe now?: No Are you made to feel afraid or neglected: No Advance Directives: No Advance Directives Information Provided: No Advance Directives on File: No Do you have thoughts of harming others: None Do you have a plan to hurt others: No Plan Recently lost weight without trying: No How much weight loss: Not applicable Eating poorly because of decreased appetite: No Nutrition screen score: 0 Nutrition Risks: No Nutritional Risk Poor oral hygiene: No service: No Meds Allergies Allergy/AdvReac Type Severity Reaction Status Date / Time Sulfa (Sulfonamide Allergy Unknown Verified 07/09/23 10:58 Antibiotics) Active Medications: Current Medications Acetaminophen (Acetaminophen 325 Mg Tablet) 650 mg PO Q6H PRN PRN Reason: Pain, Mild (Pain Scale 1-3) Last Admin: 07/10/23 14:41 Dose: 650 mg Atenolol (Atenolol 100 Mg Tablet) 100 mg PO DAILY [facility]; Protocol Last Admin: 07/11/23 08:30 Dose: 100 mg Docusate Sodium (Docusate Sodium 100 Mg Capsule) 100 mg PO DAILY PRN PRN Reason: Constipation Last Admin: 07/11/23 03:36 Dose: 100 mg Enoxaparin Sodium (Enoxaparin Sodium 40 Mg/0.4 Ml Syringe) 40 mg SUBCUT Q24H [facility] Last Admin: 07/10/23 16:52 Dose: 40 mg Lidocaine (Lidocaine 4 % Patch Adh..Patch) 2 patch TRANSDERMA DAILY [facility]; Protocol Last Admin: 07/11/23 08:33 Dose: Not Given Morphine Sulfate (Morphine Sulfate 4 Mg/Ml Cartridge) 4 mg IVPUSH Q4H PRN; Protocol PRN Reason: Pain, Severe (Pain Scale 7-10) Last Admin: 07/11/23 08:30 Dose: 4 mg Ondansetron HCl (Ondansetron Hcl 4 Mg/2 Ml Vial) 4 mg IVPUSH Q8H PRN PRN Reason: Nausea and Vomiting Oxycodone HCl (Oxycodone Hcl Immed Release 5 Mg Tablet) 10 mg PO Q4H PRN PRN Reason: Pain, Moderate(Pain Scale 4-6) Last Admin: 07/11/23 11:19 Dose: 10 mg Sodium Chloride (0.9 % Sodium Chloride Flush 3 Ml Syringe) 3 ml IVFLUSH QSHIFT [facility] Last Admin: 07/11/23 08:31 Dose: 3 ml Timolol Maleate (Timolol Maleate 0.5 % Oph Franca 5 Ml Drbtl) 2 drop EYE-BOTH DAILY [facility] Last Admin: 07/11/23 11:19 Dose: 2 drop Home Medications Medication Instructions Recorded Confirmed Last Taken Type atenolol 50 mg tablet 100 mg PO DAILY 07/09/23 07/09/23 07/08/23 History timolol 0.5 % eye drops 2 drp ophthalmic (eye) DAILY 07/09/23 07/09/23 Unknown History Physical Exam 2 Vital Signs: Vital Signs: Last Vital Signs Temp 97.6 F 07/11/23 07:16 Pulse 74 07/11/23 07:16 Resp 18 07/11/23 07:16 BP 130/66 07/11/23 07:16 Pulse Ox 96 07/11/23 07:16 O2 Del Method Room Air 07/11/23 07:16 BMI result Body Mass Index 31.0 Const: Other: Patient is in bed, stable but having moderate right costal/rib pain. He was able to use his incentive spirometry sparingly. Chest: Other: Chest breath sounds bilaterally, right-sided chest discomfort. Results Labs 07/11/23 05:19 07/11/23 05:19 Labs: Abnormal lab results 07/11/23 Range/Units 05:19 WBC 11.5 H (4.8-10.8) X10*3/uL RBC 4.18 L (4.60-5.80) X10*6/uL Hgb 12.3 L (14.0-18.0) g/dl Hct 37.9 L (42.0-52.0) % MPV 8.8 L (9.4-12.4) fL Neut % (Auto) 78.1 H (45-73) % Lymph % (Auto) 7.8 L (20-40) % [place] % (Auto) 11.9 H (2-11) % Lymph # (Auto) 0.9 L (1.2-4.9) X10*3/uL [place] # (Auto) 1.4 H (0.1-1.2) X10*3/uL Abs Immat Gran (auto) 0.04 H (0.00-0.03) X10*3/uL Absolute Neuts (auto) 9.0 H (2.0-8.3) x10*3/uL PT 14.0 H (11.1-13.3) SEC INR 1.2 H (0.9-1.1) Sodium 134 L (135-145) mmol/L Fasting Glucose 156 H (60-99) mg/dL Total Bilirubin 1.1 H (0.0-1.0) mg/dL Short CBC 07/11/23 Range/Units 05:19 WBC 11.5 H (4.8-10.8) X10*3/uL Hgb 12.3 L (14.0-18.0) g/dl Hct 37.9 L (42.0-52.0) % Plt Count 227 (160-400) X10*3/uL BMP 07/11/23 05:19 Sodium 134 L Potassium 4.5 Chloride 99 Carbon Dioxide 26 BUN 13 Creatinine 0.98 Calcium 9.1 Liver Function 07/11/23 Range/Units 05:19 Total Bilirubin 1.1 H (0.0-1.0) mg/dL AST 15 (5-37) U/L ALT 20 (0-40) U/L Alkaline Phosphatase 69 (39-117) U/L Albumin 3.5 (3.5-5.0) g/dL All other labs normal. Assessment and Plan (1) Multiple fractures of ribs of right side: Status: Acute (2) Pneumothorax, right: Status: Acute Plan Follow-up chest x-ray this morning shows small right stable pneumothorax, rib fractures, small right pleural effusion. Discussed with Dr. Baxter, consideration for either regional block or epidural placement for pain control. Also encourage incentive spirometry, out of bed. Time Spent With Patient Time: Total time managing care of this patient today ____ minutes. Procedures Date of Service Date of Service: 07/11/23
--- NOTE | 2023-07-11 11:28 | MHC.CM.PN ---
Referred to [facility] to increase home health services, PARRISH from [facility] saw him, he is active on their services, CM is Micheline Hays. She reports that he refuses home health aid services, or the staff decline to go to his home because he is a heavy smoker. They are recommending that he either go to [facility] or have [facility] services. CM to follow.
[2023-07-11 11:40] VITALS: BP 109/56; PULSE 77; RESP 18; TEMP 36.7; O2SAT 94
--- NOTE | 2023-07-11 15:10 | P.PNIM_ITS ---
Subjective Subjective Date of Service: 07/11/23 Interval History: Pain slowly improving. OOB to chair. Still uncomfortable however markedly improved Review of Systems Admits to chest pain over rib fractures Denies shortness of breath Denies nausea vomiting diarrhea Denies fever chills Physical Exam 2 Vital Signs: Vital Signs: Last Vital Signs Temp 98.1 F 07/11/23 11:40 Pulse 77 07/11/23 11:40 Resp 18 07/11/23 11:40 BP 109/56 L 07/11/23 11:40 Pulse Ox 94 07/11/23 11:40 O2 Del Method Room Air 07/11/23 11:40 BMI result Body Mass Index 31.0 Const: Other: Uncomfortable appearing in bed; able speak in full sentences Chest: Other: Right lateral chest wall tenderness over fractures Resp: Other: Diminished but clear throughout. No rales rhonchi or wheezes Cardio: Other: No S4; positive S1-S2; no S3 murmurs rubs or gallops GI: Other: Soft nontender nondistended normoactive bowel sounds Neuro: Other: Cranial nerves 2-12 grossly intact as tested. Motor is 5/5 all extremities. Sensation is intact Extrem: Other: No edema bilaterally Objective Data Active Medications Acetaminophen (Acetaminophen 325 Mg Tablet) 650 mg PO Q6H PRN PRN Reason: Pain, Mild (Pain Scale 1-3) Last Admin: 07/10/23 14:41 Dose: 650 mg Documented By: GREGORIO Atenolol (Atenolol 100 Mg Tablet) 100 mg PO DAILY [facility]; Protocol Last Admin: 07/11/23 08:30 Dose: 100 mg Documented By: MONE Docusate Sodium (Docusate Sodium 100 Mg Capsule) 100 mg PO DAILY PRN PRN Reason: Constipation Last Admin: 07/11/23 03:36 Dose: 100 mg Documented By: OZORALB Enoxaparin Sodium (Enoxaparin Sodium 40 Mg/0.4 Ml Syringe) 40 mg SUBCUT Q24H [facility] Last Admin: 07/10/23 16:52 Dose: 40 mg Documented By: GREGORIO Lidocaine (Lidocaine 4 % Patch Adh..Patch) 2 patch TRANSDERMA DAILY [facility]; Protocol Last Admin: 07/11/23 08:33 Dose: Not Given Documented By: HO.[email or web address] Non-Admin Reason: Patient Refused Morphine Sulfate (Morphine Sulfate 4 Mg/Ml Cartridge) 4 mg IVPUSH Q4H PRN; Protocol PRN Reason: Pain, Severe (Pain Scale 7-10) Last Admin: 07/11/23 08:30 Dose: 4 mg Documented By: MONE Ondansetron HCl (Ondansetron Hcl 4 Mg/2 Ml Vial) 4 mg IVPUSH Q8H PRN PRN Reason: Nausea and Vomiting Oxycodone HCl (Oxycodone Hcl Immed Release 5 Mg Tablet) 10 mg PO Q4H PRN PRN Reason: Pain, Moderate(Pain Scale 4-6) Last Admin: 07/11/23 11:19 Dose: 10 mg Documented By: MONE Sodium Chloride (0.9 % Sodium Chloride Flush 3 Ml Syringe) 3 ml IVFLUSH QSHIFT [facility] Last Admin: 07/11/23 08:31 Dose: 3 ml Documented By: MONE Timolol Maleate (Timolol Maleate 0.5 % Oph Franca 5 Ml Drbtl) 2 drop EYE-BOTH DAILY [facility] Last Admin: 07/11/23 11:19 Dose: 2 drop Documented By: MONE Labs 07/11/23 05:19 07/11/23 05:19 Labs: Laboratory Results - last 24 hr 07/11/23 05:19 MCV 90.7 MCH 29.4 MCHC 32.5 RDW 13.2 Plt Count 227 MPV 8.8 L Immature Gran % (Auto) 0.3 Neut % (Auto) 78.1 H Lymph % (Auto) 7.8 L [place] % (Auto) 11.9 H Eos % (Auto) 1.6 Baso % (Auto) 0.3 Lymph # (Auto) 0.9 L [place] # (Auto) 1.4 H Eos # (Auto) 0.2 Baso # (Auto) 0.0 Abs Immat Gran (auto) 0.04 H Absolute Neuts (auto) 9.0 H Absolute Nucleated RBC 0.000 Nucleated RBC % (auto) 0.0 PT 14.0 H INR 1.2 H Anion Gap 14 Estim Creat Clear Calc 67.3 Estimated GFR > 60 Fasting Glucose 156 H Calcium 9.1 Total Bilirubin 1.1 H AST 15 ALT 20 Alkaline Phosphatase 69 Total Protein 7.1 Albumin 3.5 Assessment and Plan (1) Multiple fractures of ribs of right side: Status: Acute Plan 83yo M presenting after mechanical fall 5d prior, no LOC or presycnope. Presenting with pleuritc R chest pain. Found to have multiple rib fx's with small pleural effusion. non-displaced, no contusion, no PTX. admitting for pain control + pulmonary toilet. per conversation with Thoracic, no role for surgical fixation. 1.Multiple nondisplaced right rib fractures -will increase oxycodone to 10 q.4 hours; will add morphine 4 mg IV q.4 hours; good response -incentive spirometry -PT consult and 2.Hypertension -acceptable control on current therapies -adjust as indicated Lovenox Do not intubate Will require ongoing hospitalization for IV analgesics pending assessment for nerve block Time Spent With Patient Time: Total time managing care of this patient today ____ minutes. Quality Stroke Does the patient have a stroke diagnosis?: No VTE Prior VTE?: No VTE Risk Level:: Medical - moderate - high VTE Device Contraindication: Treatment Not Indicated VTE Drug Contraindication: N/A - Med Ordered
[2023-07-11 15:44] VITALS: BP 117/59; PULSE 75; RESP 18; TEMP 35.7; O2SAT 96
[2023-07-11] MEDS: polyethylene glycoL 3350 17 GM POWD.PACK PO (15:58)
[2023-07-11] MEDS: Enoxaparin Sodium 40 MG/0.4 ML SYRINGE SUBCUT (17:33)
[2023-07-11] MEDS: Magnesium Hydrox/Alum Hydrox 30 ML ORAL.SUSP PO (17:33)
--- NOTE | 2023-07-11 18:38 | PC.NURSE ---
Pt a moderate fall risk. Refuses bed alarm.
[2023-07-11 20:00] VITALS: BP 134/65; PULSE 77; RESP 18; TEMP 36.4; O2SAT 97
[2023-07-12] VITALS (7 sets, daily range): BP systolic 119–154; BP diastolic 64–76; PULSE 69–81; RESP 15–18; TEMP 36.1–36.4; O2SAT 96–100
--- NOTE | 2023-07-12 01:44 | PC.NURSE ---
Patient continues to refuse bed alarm. Patient educated on safety precautions, ambulates with steady gait.
[2023-07-12] MEDS: oxyCODONE HCl Immed Release 5 MG TABLET 10 MG PO ×3 (02:13→15:43)
[2023-07-12 06:00] LABS: MANUAL DIFF FLAG NO
[2023-07-12 06:04] LABS: Basophils Percent Auto 0.3 % (0-2); Eosinophils Absolute Auto 0.2 X10*3/uL (0.0-0.4); Eosinophils Percent Auto 2.3 % (0-4); Hematocrit 36.5 % (42.0-52.0); Hemoglobin 12.1 g/dl (14.0-18.0); Imm Gran Abs Auto 0.03 X10*3/uL (0.00-0.03); Imm Gran Pct Auto 0.3 % (0.0-0.4); Lymphocytes Absolute Auto 1.2 X10*3/uL (1.2-4.9); Lymphocytes Percent Auto 12.7 % (20-40); Mean Corpuscular HGB Conc 33.2 g/dl (31.0-36.0); Mean Corpuscular Hemoglobin 29.6 pg (27.0-33.0); Mean Corpuscular Volume 89.2 fL (80.0-98.0); Mean Platelet Volume 8.6 fL (9.4-12.4); Monocytes Absolute Auto 1.1 X10*3/uL (0.1-1.2); Monocytes Percent Auto 11.4 % (2-11); Platelet Count 250 X10*3/uL (160-400); Red Blood Count 4.09 X10*6/uL (4.60-5.80); Red Cell Distribution Width 13.2 % (11.0-16.0); White Blood Count 9.6 X10*3/uL (4.8-10.8)
[2023-07-12 06:26] LABS: Alanine Aminotransferase 24 U/L (0-40); Albumin Level 3.5 g/dL (3.5-5.0); Alkaline Phosphatase 68 U/L (39-117); Anion Gap 15 (12-20); Aspartate Amino Transferase 18 U/L (5-37); Blood Urea Nitrogen 17 mg/dL (9-16); Calcium 9.2 mg/dL (8.4-10.2); Carbon Dioxide 25 mmol/L (22-29); Chloride 98 mmol/L (96-108); Creatinine Clr Calc Pharmacy 66.6; Estimated Glomerular Filt Rate > 60; Glucose Fasting 148 mg/dL (60-99); Potassium 4.2 mmol/L (3.3-5.1); Sodium 134 mmol/L (135-145); Total Protein 7.4 g/dL (6.5-8.0)
[2023-07-12] MEDS: Docusate Sodium 100 MG CAPSULE PO (06:27)
[2023-07-12] MEDS: polyethylene glycoL 3350 17 GM POWD.PACK PO (07:51)
[2023-07-12] MEDS: timoloL maleate 0.5 % Oph Sol 5 ML DRBTL 2 DROP EYE-BOTH (07:51)
[2023-07-12] MEDS: atenoloL 100 MG TABLET PO (07:51)
[2023-07-12] MEDS: Morphine Sulfate 4 MG/ML CARTRIDGE IVPUSH ×2 (11:05→21:58)
[2023-07-12] MEDS: 0.9 % Sodium Chloride Flush 3 ML SYRINGE IVFLUSH ×3 (11:06→22:02)
--- NOTE | 2023-07-12 14:36 | HO.PM.IMPN ---
Subjective Subjective Date of Service: 07/12/23 Interval History: Slowly improving. Still utilizing IV morphine for breakthrough pain in backdrop of oxycodone Review of Systems Admits to chest pain over rib fractures Denies shortness of breath Denies nausea vomiting diarrhea Denies fever chills Physical Exam Vital Signs: Vital Signs: Last Vital Signs Temp 97.5 F 07/12/23 11:59 Pulse 69 07/12/23 11:59 Resp 18 07/12/23 11:59 BP 137/68 07/12/23 11:59 Pulse Ox 98 07/12/23 11:59 O2 Del Method Room Air 07/12/23 11:59 BMI result Body Mass Index 31.0 Const: Other: Uncomfortable appearing in bed; able speak in full sentences Chest: Other: Right lateral chest wall tenderness over fractures Resp: Other: Diminished but clear throughout. No rales rhonchi or wheezes Cardio: Other: No S4; positive S1-S2; no S3 murmurs rubs or gallops GI: Other: Soft nontender nondistended normoactive bowel sounds Neuro: Other: Cranial nerves 2-12 grossly intact as tested. Motor is 5/5 all extremities. Sensation is intact Extrem: Other: No edema bilaterally Objective Data Active Medications Acetaminophen (Acetaminophen 325 Mg Tablet) 650 mg PO Q6H PRN PRN Reason: Pain, Mild (Pain Scale 1-3) Last Admin: 07/10/23 14:41 Dose: 650 mg Documented By: GREGORIO Al Hydroxide/Mg Hydroxide (Magnesium Hydrox/Alum Hydrox 30 Ml Oral.Susp) 30 ml PO Q6H PRN PRN Reason: Indigestion Last Admin: 07/11/23 17:33 Dose: 30 ml Documented By: MONE Atenolol (Atenolol 100 Mg Tablet) 100 mg PO DAILY [facility]; Protocol Last Admin: 07/12/23 07:51 Dose: 100 mg Documented By: MONE Docusate Sodium (Docusate Sodium 100 Mg Capsule) 100 mg PO DAILY PRN PRN Reason: Constipation Last Admin: 07/12/23 06:27 Dose: 100 mg Documented By: BELIA Enoxaparin Sodium (Enoxaparin Sodium 40 Mg/0.4 Ml Syringe) 40 mg SUBCUT Q24H [facility] Last Admin: 07/11/23 17:33 Dose: 40 mg Documented By: MONE Lidocaine (Lidocaine 4 % Patch Adh..Patch) 2 patch TRANSDERMA DAILY [facility]; Protocol Last Admin: 07/12/23 08:59 Dose: Not Given Documented By: MONE Non-Admin Reason: Patient Refused Morphine Sulfate (Morphine Sulfate 4 Mg/Ml Cartridge) 4 mg IVPUSH Q4H PRN; Protocol PRN Reason: Pain, Severe (Pain Scale 7-10) Last Admin: 07/12/23 11:05 Dose: 4 mg Documented By: MONE Ondansetron HCl (Ondansetron Hcl 4 Mg/2 Ml Vial) 4 mg IVPUSH Q8H PRN PRN Reason: Nausea and Vomiting Oxycodone HCl (Oxycodone Hcl Immed Release 5 Mg Tablet) 10 mg PO Q4H PRN PRN Reason: Pain, Moderate(Pain Scale 4-6) Last Admin: 07/12/23 06:14 Dose: 10 mg Documented By: BELIA Polyethylene Glycol (Polyethylene Glycol 3350 17 Gm Powd.Pack) 17 gm PO DAILY [facility] Last Admin: 07/12/23 07:51 Dose: 17 gm Documented By: MONE Sodium Chloride (0.9 % Sodium Chloride Flush 3 Ml Syringe) 3 ml IVFLUSH QSHIFT [facility] Last Admin: 07/12/23 11:06 Dose: 3 ml Documented By: MONE Timolol Maleate (Timolol Maleate 0.5 % Oph Franca 5 Ml Drbtl) 2 drop EYE-BOTH DAILY [facility] Last Admin: 07/12/23 07:51 Dose: 2 drop Documented By: MONE Labs 07/12/23 05:54 07/12/23 05:54 Labs: Laboratory Results - last 24 hr 07/12/23 05:54 MCV 89.2 MCH 29.6 MCHC 33.2 RDW 13.2 Plt Count 250 MPV 8.6 L Immature Gran % (Auto) 0.3 Neut % (Auto) 73.0 Lymph % (Auto) 12.7 L [place] % (Auto) 11.4 H Eos % (Auto) 2.3 Baso % (Auto) 0.3 Lymph # (Auto) 1.2 [place] # (Auto) 1.1 Eos # (Auto) 0.2 Baso # (Auto) 0.0 Abs Immat Gran (auto) 0.03 Absolute Neuts (auto) 7.0 Absolute Nucleated RBC 0.000 Nucleated RBC % (auto) 0.0 Anion Gap 15 Estim Creat Clear Calc 66.6 Estimated GFR > 60 Fasting Glucose 148 H Calcium 9.2 Total Bilirubin 1.0 AST 18 ALT 24 Alkaline Phosphatase 68 Total Protein 7.4 Albumin 3.5 Assessment and Plan (1) Multiple fractures of ribs of right side: Status: Acute Plan 83yo M presenting after mechanical fall 5d prior, no LOC or presycnope. Presenting with pleuritc R chest pain. Found to have multiple rib fx's with small pleural effusion. non-displaced, no contusion, no PTX. admitting for pain control + pulmonary toilet. per conversation with Thoracic, no role for surgical fixation. 1.Multiple nondisplaced right rib fractures -will increase oxycodone to 10 q.4 hours; will add morphine 4 mg IV q.4 hours; good response -incentive spirometry -PT consult appreciated 2.Hypertension -acceptable control on current therapies -adjust as indicated Lovenox Do not intubate Will require ongoing hospitalization for IV analgesics pending assessment for nerve block Time Spent With Patient Time: Total time managing care of this patient today ____ minutes. Quality Stroke Does the patient have a stroke diagnosis?: No VTE Prior VTE?: No VTE Risk Level:: Medical - moderate - high VTE Device Contraindication: Treatment Not Indicated VTE Drug Contraindication: N/A - Med Ordered
[2023-07-12] MEDS: Enoxaparin Sodium 40 MG/0.4 ML SYRINGE SUBCUT (18:08)
[2023-07-13] VITALS: BP 125/65; PULSE 82; RESP 16; TEMP 36.3; O2SAT 96
[2023-07-13] MEDS: Morphine Sulfate 4 MG/ML CARTRIDGE IVPUSH (03:48)
[2023-07-13 04:00] VITALS: BP 143/78; PULSE 74; RESP 16; TEMP 36.6; O2SAT 97
[2023-07-13 06:10] LABS: MANUAL DIFF FLAG NO
[2023-07-13 06:26] LABS: Basophils Absolute Auto 0.1 X10*3/uL (0.0-0.2); Basophils Percent Auto 0.5 % (0-2); Eosinophils Absolute Auto 0.4 X10*3/uL (0.0-0.4); Eosinophils Percent Auto 3.4 % (0-4); Hemoglobin 11.8 g/dl (14.0-18.0); Imm Gran Abs Auto 0.03 X10*3/uL (0.00-0.03); Imm Gran Pct Auto 0.3 % (0.0-0.4); Lymphocytes Absolute Auto 1.5 X10*3/uL (1.2-4.9); Lymphocytes Percent Auto 14.4 % (20-40); Mean Corpuscular HGB Conc 33.7 g/dl (31.0-36.0); Mean Corpuscular Hemoglobin 29.7 pg (27.0-33.0); Mean Corpuscular Volume 88.2 fL (80.0-98.0); Mean Platelet Volume 9.6 fL (9.4-12.4); Monocytes Absolute Auto 1.4 X10*3/uL (0.1-1.2); Monocytes Percent Auto 13.4 % (2-11); Neutrophils Absolute Auto 6.9 x10*3/uL (2.0-8.3); Platelet Count 255 X10*3/uL (160-400); Red Blood Count 3.97 X10*6/uL (4.60-5.80); Red Cell Distribution Width 13.1 % (11.0-16.0); White Blood Count 10.2 X10*3/uL (4.8-10.8)
[2023-07-13 06:35] LABS: Alanine Aminotransferase 34 U/L (0-40); Albumin Level 3.5 g/dL (3.5-5.0); Alkaline Phosphatase 73 U/L (39-117); Anion Gap 13 (12-20); Aspartate Amino Transferase 25 U/L (5-37); Bilirubin Total 0.7 mg/dL (0.0-1.0); Blood Urea Nitrogen 21 mg/dL (9-16); Calcium 9.5 mg/dL (8.4-10.2); Carbon Dioxide 24 mmol/L (22-29); Chloride 100 mmol/L (96-108); Creatinine Clr Calc Pharmacy 71.7; Estimated Glomerular Filt Rate > 60; Glucose Fasting 138 mg/dL (60-99); Potassium 4.1 mmol/L (3.3-5.1); Sodium 133 mmol/L (135-145); Total Protein 7.4 g/dL (6.5-8.0)
[2023-07-13 08:00] VITALS: BP 123/59; PULSE 75; RESP 16; TEMP 36.7; O2SAT 95
[2023-07-13] MEDS: atenoloL 100 MG TABLET PO (08:34)
[2023-07-13] MEDS: timoloL maleate 0.5 % Oph Sol 5 ML DRBTL 2 DROP EYE-BOTH (08:34)
[2023-07-13] MEDS: 0.9 % Sodium Chloride Flush 3 ML SYRINGE IVFLUSH (08:34)
[2023-07-13] MEDS: polyethylene glycoL 3350 17 GM POWD.PACK PO (08:34)
--- NOTE | 2023-07-13 10:24 | MHC.CM.PN ---
Pt has been medically cleared for DC, he will go today to [facility] for STR via ambulance.
--- NOTE | 2023-07-13 12:00 | PM.DS ---
DS: Providers Provider Date of Service: 07/13/23 Date of admission: 07/10/23 13:40 Date of discharge: 07/13/23 Primary care physician: Yousuf Mercado MD DS: Diagnosis Discharge Diagnosis (1) Multiple fractures of ribs of right side: Status: Acute DS: Summary Hospital Course Hospital Course: 83-year-old male with history of glaucoma and hypertension presented to the ED earlier today for evaluation of right-sided rib pain. The patient reports he sustained a mechanical fall about 5 days ago. He was caring a crock pot down the stairs when he lost bottom finisher and tried to catch this falling down on several stairs landing on the right side and back. He denies any head strike or loss of consciousness. Since then he has had uncontrolled pain worse with deep inspiration in the upper right back and right chest. In the ED, vital stable though patient hypertensive to 177/87. There is a slight leukocytosis of 12.0, stable normocytic anemia. Renal function electrolyte levels are normal. Hepatic function normal. X-ray of the right ribs shows fractures involving the right lateral 8th and 9th ribs with small right basilar pleural effusion. CT abdomen/pelvis negative for any acute intra-abdominal abnormality including fracture. CT chest shows multiple right rib fractures from 5th through 11th ribs with small right pleural effusion but no lung contusion or pneumothorax. In the ED, has received ketorolac, lidocaine patch, Tylenol without improvement. Patient has no ride home if administered narcotic medication and has no other ride home. Given intractable pain, patient will be observed overnight for pain management. Ordered for 4 mg IV morphine in the ED. Hospital Course Admitted to general medical floor and pain was managed with IV morphine and oxycodone. On the evening of admission patient developed an extremely firm and distended abdomen. CT of abdomen pelvis done which failed to demonstrate any acute intra-abdominal process; he did however demonstrate a small right anterior pneumothorax. Patient remained asymptomatic from a respiratory standpoint. Seen in consultation by thoracic surgery who felt conservative management was best. At this point in time, patient's pain is managed with oral oxycodone however will need restorative services. He is medically acceptable at this time for transfer to SNF Time Spent with Patient Time attestation: Total time managing care of this patient today ____ minutes. Discharge coordination time: Greater than 30 minutes Quality: Safe Use of Opioids Does Pt have an Active Cancer Diagnosis on the Problem List?: No Quality: Stroke Does the patient have a stroke diagnosis?: No Physical Exam Vital Signs: Vital Signs: Last Vital Signs Temp 98.1 F 07/13/23 08:00 Pulse 75 07/13/23 08:00 Resp 16 07/13/23 08:00 BP 123/59 L 07/13/23 08:00 Pulse Ox 95 07/13/23 08:00 O2 Del Method Room Air 07/13/23 08:00 BMI result Body Mass Index 31.0 Const: Other: Uncomfortable appearing in bed; able speak in full sentences Chest: Other: Right lateral chest wall tenderness over fractures Resp: Other: Diminished but clear throughout. No rales rhonchi or wheezes Cardio: Other: No S4; positive S1-S2; no S3 murmurs rubs or gallops GI: Other: Soft nontender nondistended normoactive bowel sounds Neuro: Other: Cranial nerves 2-12 grossly intact as tested. Motor is 5/5 all extremities. Sensation is intact Extrem: Other: No edema bilaterally DS: Data Data Completed and Pending Labs on day of discharge: Laboratory Results - last 24 hr 07/13/23 06:06 WBC 10.2 RBC 3.97 L Hgb 11.8 L Hct 35.0 L MCV 88.2 MCH 29.7 MCHC 33.7 RDW 13.1 Plt Count 255 MPV 9.6 Immature Gran % (Auto) 0.3 Neut % (Auto) 68.0 Lymph % (Auto) 14.4 L [place] % (Auto) 13.4 H Eos % (Auto) 3.4 Baso % (Auto) 0.5 Lymph # (Auto) 1.5 [place] # (Auto) 1.4 H Eos # (Auto) 0.4 Baso # (Auto) 0.1 Abs Immat Gran (auto) 0.03 Absolute Neuts (auto) 6.9 Absolute Nucleated RBC 0.000 Nucleated RBC % (auto) 0.0 Sodium 133 L Potassium 4.1 Chloride 100 Carbon Dioxide 24 Anion Gap 13 BUN 21 H Creatinine 0.92 Estim Creat Clear Calc 71.7 Estimated GFR > 60 Fasting Glucose 138 H Calcium 9.5 Total Bilirubin 0.7 AST 25 ALT 34 Alkaline Phosphatase 73 Total Protein 7.4 Albumin 3.5 Discharge Plan Discharge Anticipated Discharge Date/Time: 07/13/23 11:54 Patient Disposition: Xfer Inpatient Rehab Fac Discharge Diagnosis: Right 5th through 11th rib fractures Referrals: [facility] [place] [Outside] - 1 Week Yousuf Mercado MD [Primary Care Provider] - 1 Week Discharge Medications: New lidocaine [Lidocaine Pain Relief] 4 % Adhesive Patch,Medicated 2 patch transdermal DAILY Qty: 10 0RF Protocol: Apply to: Apply to: back, chest right side lactulose 20 gram/30 mL Solution 30 g PO Q24H Qty: 450 0RF oxycodone 10 mg tablet 10 mg PO Q4H PRN (Reason: pain) Qty: 60 0RF Rx Instructions: Partial Fill upon patient request. Continued timolol 0.5 % Drops 2 drp OPHTHALMIC (EYE) DAILY Patient Comments: IN EACH EYE atenolol 50 mg Tablet 100 mg PO DAILY Discharge Orders: Discharge Order (Routine); Ordered 07/13/23 Ordered By: Omer Baxter Diet: Advance to usual diet Activity on Discharge: As tolerated Stand Alone Forms: Patient Portal Discharge page Care Plan Goals: Oxycodone 10 mg every 4 hours for pain Health Concerns: Further plans as per Rosalinda's medical Plan of Treatment: Short-term rehab with returned home Assessment: See discharge summary
== END 2023-07-13 13:42 | DRG 184 ==
LOC: HO.ED 17:37 → HO.EDOVER 18:02 → HO.S3 07-10 07:02
PROVIDERS: Nurse Practitioner Family; Admitting Provider Physician Assistant; Emergency Provider Emergency Medicine; PCP Internal Medicine; Visit Provider Hospitalist
DX: S22.41XA Multiple fractures of ribs, right side, initial encounter for closed fracture (principal); S27.0XXA Traumatic pneumothorax, initial encounter; W19.XXXA Unspecified fall, initial encounter; I10 Essential (primary) hypertension; H40.9 Unspecified glaucoma; Z79.899 Other long term (current) drug therapy
CPT/HCPCS: 36415; 71045; 71101; 71250; 74176; 80048; 80053; 80076; 85025; 85610; 92950; 97162; 99221; 99285; J1650; J1885; J2270; J2405

== ENCOUNTER → 2023-07-10 13:40 | Outpatient (BNV) | payer MEDICARE, SELFPAY | PROVIDERS: Admitting Provider Physician Assistant; Emergency Provider Emergency Medicine; PCP Internal Medicine; Visit Provider Physician Assistant | DX: S22.41XA Multiple fractures of ribs, right side, initial encounter for closed fracture (principal) | CPT/HCPCS: 99222; 99233; 99239; 99499 ==

== ENCOUNTER → 2023-07-10 13:40 | Outpatient (BNV) | payer MEDICARE, SELFPAY | PROVIDERS: Admitting Provider Physician Assistant; Emergency Provider Emergency Medicine; PCP Internal Medicine; Visit Provider Surgery | DX: S22.41XA Multiple fractures of ribs, right side, initial encounter for closed fracture (principal); J93.9 Pneumothorax, unspecified | CPT/HCPCS: 99222 ==